=== PATIENT | female | born 1990 | race Two or more races ===

== ENCOUNTER 2022-03-05 12:52 | Emergency (ER) | payer MEDICAID ==
[~2022-03-05] VITALS: Ht 157.5 cm; Wt 150.0 kg
[2022-03-05 13:09] VITALS: BP 132/86
[2022-03-05 14:37] LABS: Urine Bacteria FEW /hpf (None Seen); Urine Blood Negative /uL (Negative); Urine Hyaline Cast FEW /lpf (0 - 2); Urine Mucus FEW (None Seen); Urine Specific Gravity 1.021 (1.001-1.035); Urine WBC 51 /hpf (0 - 5); Urine WBC Clumps PRESENT /hpf (None Seen)
== END 2022-03-05 18:33 | disposition left against medical advice (07) ==
LOC: ER 12:52
DX: R68.84 Jaw pain (principal); Z53.21 Procedure and treatment not carried out due to patient leaving prior to being seen by health care provider
CPT/HCPCS: 70110; 81001; 81025